=== PATIENT | male | born 1970 ===

== ENCOUNTER 2019-12-28 02:15 | Emergency (ER) | payer OTHER ==
[~2019-12-28] VITALS: Ht 172.7 cm; Wt 72.6 kg
[2019-12-28] MEDS ORDERED: ONDANSETRON ODT 4 MG TAB.RAPDIS ONE (03:30)
[2019-12-28] MEDS ORDERED: ONDANSETRON ODT 4 MG TAB.RAPDIS SL ONE (03:30)
== END 2019-12-28 03:05 | disposition home or self-care (01) ==
LOC: ER 02:16
DX: Z20.828 Contact with and (suspected) exposure to other viral communicable diseases (principal)
CPT/HCPCS: A4663; Q0162